=== PATIENT | female | born 1985 | race American Indian/Alaskan Native ===

== ENCOUNTER 2020-08-19 15:15 | Emergency (ER) | payer SELFPAY ==
--- NOTE | 2020-08-19 15:26 | Event Note ---
ED Screening Note Date of service: 08/19/20 Time: 15:25 ED Screening Note: Pelvic pain, low back pain, N/V over the past few weeks. This initial assessment/diagnostic orders/clinical plan/treatment(s) is/are subject to change based on patients health status, clinical progression and re-assessment by fellow clinical providers in the ED. Further treatment and workup at subsequent clinical providers discretion. Patient/guardian urged not to elope from the ED as their condition may be serious if not clinically assessed and managed. Initial orders include: cbc, cmp, lipase, UA, urine hcg
[2020-08-19 16:42] LABS: Basophils % (Auto) 0.6 % (0.0-1.8); Eosinophils # (Auto) 0.2 K/mm3 (0.0-0.4); Eosinophils % (Auto) 2.8 % (0.0-4.3); Hematocrit 27.4 % (30.3-42.9); Hemoglobin 8.2 gm/dl (10.1-14.3); Lymphocytes # (Auto) 1.8 K/mm3 (1.2-5.4); Lymphocytes % (Auto) 29.4 % (13.4-35.0); Mean Corpuscular HGB Conc 30 % (30-34); Monocytes # (Auto) 0.6 K/mm3 (0.0-0.8); Monocytes % (Auto) 9.8 % (0.0-7.3); Platelet Count 469 K/mm3 (140-440); Red Blood Count 4.44 M/mm3 (3.65-5.03); Red Cell Distribution Width 18.6 % (13.2-15.2)
[2020-08-19 16:43] LABS: Mean Corpuscular Volume 62 fl (79-97)
[2020-08-19 16:56] LABS: Alanine Aminotransferase 8 units/L (7-56); Albumin 4.1 g/dL (3.9-5); Blood Urea Nitrogen 6 mg/dL (7-17); Calcium 9.2 mg/dL (8.4-10.2); Hemolysis Index 6
[2020-08-19 16:58] LABS: BUN/Creatinine Ratio 9
[2020-08-19 17:30] VITALS: BP 110/60
[2020-08-19 17:48] LABS: Bilirubin,Urine NEG (Negative); Blood,Urine NEG (Negative); Color,Urine Yellow (Yellow); Mucus,Urine FEW /HPF; Protein,Urine <15 mg/dL mg/dL (Negative); Urobilinogen,Urine < 2.0 mg/dL (<2.0); WBC,Urine < 1.0 /HPF (0.0-6.0)
[2020-08-19 17:52] LABS: HCG Qualitative,Urine Negative (Negative)
--- NOTE | 2020-08-19 18:09 | Emergency Department Report ---
HPI - General Chief Complaint: Abdominal Pain Time Seen by Provider: 08/19/20 17:46 - HPI HPI: This is a 35-year-old -[place] female presents to the emergency department with a complaint of a 3-week history of some vaginal discharge that she believes is, or at least was, a yeast infection. The patient used some Monistat with some relief, but says that she does still have visible discharge. Over the past 4 days the patient has developed bilateral pelvic pain with some radiation up towards the right side of the abdomen and right flank. She denies any fever, nausea, vomiting, dysuria, vaginal bleeding, constipation or diarrhea. She has a past medical history of anemia. She has a tubal ligation. She goes to [place] for primary care. She does not have an active [facility] for follow-up. No recent travel or sick contacts at home. She has not taken anything for symptoms prior to presentation. ED Past Medical Hx - Past Medical History Previous Medical History?: No - Surgical History Past Surgical History?: Yes Additional Surgical History: Tubal ligation - Medications Home Medications: Home Medications Medication Instructions Recorded Confirmed Last Taken Type DOXYCYCLINE Hyclate [Vibramycin 100 mg PO Q12HR #20 capsule 08/19/20 Unknown Rx CAP] ED Review of Systems ROS: Stated complaint: ABDONIAL PAIN/LOW BACK PAIN Other details as noted in HPI Comment: All other systems reviewed and negative Constitutional: denies: chills, fever Eyes: denies: eye pain, vision change ENT: denies: ear pain, throat pain Respiratory: denies: cough, shortness of breath Cardiovascular: denies: chest pain, palpitations Gastrointestinal: abdominal pain. denies: vomiting Genitourinary: discharge, other (pelvic pain). denies: dysuria Musculoskeletal: denies: joint swelling, arthralgia Skin: denies: rash, lesions Neurological: denies: headache, weakness Physical Exam - Physical Exam Vital Signs: Vital Signs 08/19/20 15:26 Temperature 98.4 F Pulse Rate 89 Respiratory 16 Rate Blood Pressure 110/60 O2 Sat by Pulse 99 Oximetry Physical Exam: GENERAL: The patient is well-developed well-nourished. HENT: Normocephalic. Atraumatic. Patient has moist mucous membranes. EYES: Extraocular motions are intact. NECK: Supple. Trachea is midline. CHEST/LUNGS: Clear to auscultation. There is no respiratory distress noted. HEART/CARDIOVASCULAR: Regular. There is no tachycardia. ABDOMEN: Abdomen is soft, nontender. Patient has normal bowel sounds. There is no abdominal distention. SKIN: Skin is warm and dry. NEURO: The patient is awake, alert, and oriented. The patient is cooperative. The patient has no focal neurologic deficits. Normal speech. MUSCULOSKELETAL: There is no tenderness or deformity. There is no limitation range of motion. PELVIC: There is a moderate amount of thin white discharge seen in the vagina. BACK: No CVA tenderness to palpation. ED Course Vital Signs 08/19/20 15:26 Temperature 98.4 F Pulse Rate 89 Respiratory 16 Rate Blood Pressure 110/60 O2 Sat by Pulse 99 Oximetry - Reevaluation(s) Reevaluation #1: 08/19/20 18:08 I was chaperoned by Sana, accredited legal secretary for this emergency department, for the pelvic examination. ED Medical Decision Making - Lab Data Result diagrams: 08/19/20 16:01 08/19/20 16:01 - Radiology Data Radiology results: report reviewed, image reviewed interpreted by me: Abdominal x-ray shows nonspecific nonobstructive bowel gas. ULTRASOUND PELVIS INDICATION: pelvic pain. TECHNIQUE: Transabdominal. Duplex Color Doppler used: Yes. COMPARISON: None available FINDINGS: Uterus: Present. Size: 10.8 x 4.9 x 6.0 cm. Endometrial complex: Normal measuring 11 mm. Mass lesions: None. Additional findings: None. Right Ovary -- Normal. Blood flow: Normal. Cyst or mass: None. Left Ovary-- Normal. Blood flow: Normal. Cyst or mass: None. Urinary Bladder: Normal. Free Fluid: None. Additional Findings: Non e. IMPRESSION: 1. No acute sonographic abnormality of the pelvis. - Medical Decision Making This patient presents to the emergency department with a complaint of some pelvic pain, right-sided abdominal and flank pain, and 3 weeks of vaginal discharge. At first the patient thought it was a yeast infection and tried treating it with Monistat. During the pelvic examination the patient has a moderate amount of thin white discharge seen in the vagina. This was sent for wet prep and was positive for bacterial vaginosis, but negative for trichomoniasis and yeast. Pelvic ultrasound did not show any ovarian torsion or any other acute process. Abdominal x-ray shows nonspecific nonobstructive bowel gas. Patient's vital signs stable throughout her ED course including being afebrile. Given the bacterial vaginosis and the more recent pelvic and abdominal pains, this appears consistent with pelvic inflammatory disease. The patient will be placed on a 10-day course of doxycycline. She has been given multiple referrals for [facility] services. She will return to the ER with any worsening of her symptoms or with any acute distress. Critical Care Time: No Critical care attestation.: If time is entered above; I have spent that time in minutes in the direct care of this critically ill patient, excluding procedure time. ED Disposition Clinical Impression: Bacterial vaginosis, Pelvic inflammatory disease Disposition: TO HOME OR SELFCARE Is pt being admited?: No Condition: Stable Instructions: Bacterial Vaginosis, Pelvic Pain, Female, Pelvic Inflammatory Disease, Bacterial Vaginosis (ED), Abdominal Pain (ED) Additional Instructions: Please follow-up with a primary care physician and [facility] in the next few days. Take the antibiotics as prescribed. Return to the emergency department with any worsening of your symptoms, new or concerning symptoms not addressed during this current emergency department visit, or with any acute distress. Prescriptions: DOXYCYCLINE Hyclate [Vibramycin CAP] 100 mg PO Q12HR #20 capsule Referrals: [facility] [Provider Group] - 3-5 Days [facility] [Provider Group] - 3-5 Days [facility] [Provider Group] - 3-5 Days Time of Disposition: 19:44
--- NOTE | 2020-08-19 19:20 | Ultrasound Report ---
ULTRASOUND PELVIS INDICATION: pelvic pain. TECHNIQUE: Transabdominal. Duplex Color Doppler used: Yes. COMPARISON: None available FINDINGS: Uterus: Present. Size: 10.8 x 4.9 x 6.0 cm. Endometrial complex: Normal measuring 11 mm. Mass lesions: None. Additional findings: None. Right Ovary -- Normal. Blood flow: Normal. Cyst or mass: None. Left Ovary-- Normal. Blood flow: Normal. Cyst or mass: None. Urinary Bladder: Normal. Free Fluid: None. Additional Findings: None. IMPRESSION: 1. No acute sonographic abnormality of the pelvis. Signer Name: Mahamed Osman MD Signed: 08/19/2020 7:16 PM Workstation Name: [id number]
--- NOTE | 2020-08-19 19:26 | XRay Report ---
ABDOMEN 3 VIEW(S) INDICATION / CLINICAL INFORMATION: Abd pain. COMPARISON: None available. FINDINGS: TUBES / LINES: None. BOWEL GAS PATTERN: No significant abnormality. FREE AIR / EXTRALUMINAL GAS: None seen. ADDITIONAL FINDINGS: No significant additional findings. IMPRESSION: 1. No significant abnormality. Signer Name: Mahamed Osman MD Signed: 08/19/2020 7:21 PM Workstation Name: [id number]
== END 2020-08-19 19:50 | disposition home or self-care (01) ==
LOC: ED 15:15
DX: N76.0 Acute vaginitis (principal); N73.9 Female pelvic inflammatory disease, unspecified; B96.89 Other specified bacterial agents as the cause of diseases classified elsewhere; Z79.899 Other long term (current) drug therapy; Z98.51 Tubal ligation status
CPT/HCPCS: 36415; 74019; 80053; 81001; 81025; 83690; 85025; 87210; 87591; 93975